=== PATIENT | male | born 1955 | race Caucasian/White ===

== ENCOUNTER 2024-11-25 10:00 | Emergency (ER) | payer BC, MEDICARE, OTHER ==
[2024-11-25] MEDS: Lactated Ringers 1,000 ML IV ONE (10:10)
[2024-11-25] MEDS ORDERED: Sodium Chloride 0.9% 10 ML Syringe FLUSH PRN (10:22)
[2024-11-25 10:27] LABS: BASOPHILS ABSOLUTE AUTO 0.06 10^3/uL (0.00-0.10); BASOPHILS PERCENT AUTO 1.3 % (0.0-1.0); EOSINOPHILS ABSOLUTE AUTO 0.64 10^3/uL (0.10-0.30); EOSINOPHILS PERCENT AUTO 13.4 % (1.0-3.0); HEMOGLOBIN 7.6 g/dL (13.0-17.0); IMMATURE GRAN ABSOLUTE AUTO 0.01 10^3/uL (0.00-0.04); IMMATURE GRAN PERCENT AUTO 0.2 % (0.0-0.4); LYMPHOCYTES ABSOLUTE AUTO 0.56 10^3/uL (1.00-4.00); LYMPHOCYTES PERCENT AUTO 11.7 % (20.0-40.0); MEAN CORPUSCULAR HEMOGLOBIN 30.5 pg (27.0-31.0); MEAN CORPUSCULAR HGB CONC 31.7 g/dL (32.0-36.0); MEAN CORPUSCULAR VOLUME 96.4 fL (82.0-92.0); MEAN PLATELET VOLUME 11.4 fL (7.4-10.4); MONOCYTES ABSOLUTE AUTO 0.61 10^3/uL (0.10-0.80); MONOCYTES PERCENT AUTO 12.8 % (2.0-8.0); NEUTROPHILS PERCENT AUTO 60.6 % (50.0-70.0); PLATELET COUNT,PLT 95 10^3/uL (150-400); RED BLOOD CELL COUNT 2.49 10^6/uL (4.50-6.00); RED CELL DISTRIBUTION WIDTH 17.5 % (11.5-14.5); WHITE BLOOD CELL COUNT,WBC 4.78 10^3/uL (5.00-10.00)
[2024-11-25 10:28] LABS: ALANINE AMINOTRANSFERASE,ALT 14 U/L (14-63); ALBUMIN 3.37 g/dL (3.40-5.00); ALKALINE PHOSPHATASE 78 U/L (46-116); ANION GAP 13.4 mmol/L (5-15); ASPARTATE AMNIOTRANSFERASE,AST 17 U/L (15-37); BILIRUBIN TOTAL 2.8 mg/dL (0.2-1.0); BLOOD UREA NITROGEN,BUN 50 mg/dL (7-18); CALCIUM 9.2 mg/dL (8.7-10.3); CARBON DIOXIDE,CO2 27.5 mmol/L (21.0-32.0); CHLORIDE,CL 102 mmol/L (98-107); ESTIMATED GFR 65 mL/min (>=60); GLUCOSE RANDOM 99 mg/dL (70-140); POTASSIUM,K 3.9 mmol/L (3.5-5.1); PROTEIN TOTAL,TP 8.4 g/dL (6.4-8.2); SODIUM,NA 139 mmol/L (136-145)
[2024-11-25] MEDS ORDERED: Sodium Chloride 0.9% 50 ML IV SCH (10:48)
[2024-11-25 10:51] LABS: INR 3.3 (0.9-1.1); PROTHROMBIN TIME 31.6 SEC (9.1-12.0); PTT,PARTIAL THROMBOPLSTIN TIME 29.2 SEC (21.6-32.4)
[2024-11-25] MEDS: Phytonadione 5 MG in Sodium Chloride 0.9% 50 ML IV ONE (10:55)
[2024-11-25] MEDS ORDERED: Sodium Chloride 0.9% 250 ML IV SCH (11:22)
[2024-11-25] MEDS: Lactated Ringers 1,000 ML ONE (11:34)
[2024-11-25] MEDS: Sodium Chloride 0.9% 250 ML ONE (12:01)
[2024-11-25] MEDS: Sodium Chloride 0.9% 50 ML ONE (12:02)
[2024-11-25] MEDS: Lactated Ringers 1,000 ML IV SCH (14:58)
[2024-11-25 17:40] VITALS: BP 123/77; PULSE 66
== END 2024-11-25 16:18 ==
LOC: KA.ED 10:00
DX: K92.2 Gastrointestinal hemorrhage, unspecified (principal); I10 Essential (primary) hypertension; I48.91 Unspecified atrial fibrillation; J44.9 Chronic obstructive pulmonary disease, unspecified; E11.9 Type 2 diabetes mellitus without complications; Z79.899 Other long term (current) drug therapy; Z79.51 Long term (current) use of inhaled steroids; Z79.84 Long term (current) use of oral hypoglycemic drugs; Z79.01 Long term (current) use of anticoagulants
CPT/HCPCS: 36415; 36430; 80053; 85025; 85610; 85730; 86850; 86900; 86901; 86920; 86922; 96361; 96365; 99284-25; J3430; J3490; J7120; P9016

== ENCOUNTER 2024-12-12 14:20 | Emergency (ER) | payer MEDICARE ==
[2024-12-12 14:36] LABS: BASOPHILS ABSOLUTE AUTO 0.06 10^3/uL (0.00-0.10); BASOPHILS PERCENT AUTO 1.7 % (0.0-1.0); EOSINOPHILS ABSOLUTE AUTO 0.28 10^3/uL (0.10-0.30); EOSINOPHILS PERCENT AUTO 7.9 % (1.0-3.0); HEMATOCRIT 26.7 % (40.0-52.0); HEMOGLOBIN 8.4 g/dL (13.0-17.0); LYMPHOCYTES ABSOLUTE AUTO 0.39 10^3/uL (1.00-4.00); MEAN CORPUSCULAR HEMOGLOBIN 30.3 pg (27.0-31.0); MEAN CORPUSCULAR HGB CONC 31.5 g/dL (32.0-36.0); MEAN CORPUSCULAR VOLUME 96.4 fL (82.0-92.0); MEAN PLATELET VOLUME 10.2 fL (7.4-10.4); MONOCYTES ABSOLUTE AUTO 0.54 10^3/uL (0.10-0.80); MONOCYTES PERCENT AUTO 15.3 % (2.0-8.0); NEUTROPHILS ABSOLUTE AUTO 2.27 10^3/uL (2.50-7.00); NEUTROPHILS PERCENT AUTO 64.1 % (50.0-70.0); PLATELET COUNT,PLT 168 10^3/uL (150-400); RED BLOOD CELL COUNT 2.77 10^6/uL (4.50-6.00); WHITE BLOOD CELL COUNT,WBC 3.54 10^3/uL (5.00-10.00)
[2024-12-12] MEDS: Furosemide 40 MG/4 ML VIAL IVPUSH ONE (14:41)
[2024-12-12] MEDS: Sodium Chloride 0.9% 10 ML Syringe FLUSH PRN (14:43)
[2024-12-12 14:46] LABS: INR 2.1 (0.9-1.1)
[2024-12-12 14:52] LABS: ALBUMIN 3.42 g/dL (3.40-5.00); ANION GAP 14.4 mmol/L (5-15); BILIRUBIN TOTAL 2.4 mg/dL (0.2-1.0); CALCIUM 8.9 mg/dL (8.7-10.3); CARBON DIOXIDE,CO2 26.9 mmol/L (21.0-32.0); CREATININE 1.64 mg/dL (0.51-1.17); EST CRCL DRUG DOSING (CG) 47.37 mL/min; POTASSIUM,K 4.3 mmol/L (3.5-5.1); PROTEIN TOTAL,TP 8.9 g/dL (6.4-8.2)
[2024-12-12 16:04] LABS: APPEARANCE,URINE CLEAR (CLEAR); COLOR,URINE YELLOW (YELLOW); PH,URINE 6.5 (5.0-9.0)
[2024-12-12 16:05] LABS: BILIRUBIN,URINE NEGATIVE (NEGATIVE); GLUCOSE,URINE NEGATIVE (NEGATIVE); KETONES,URINE NEGATIVE (NEGATIVE); LEUKOCYTE ESTERASE,URINE NEGATIVE (NEGATIVE); NITRITE,URINE NEGATIVE (NEGATIVE); OCCULT BLOOD,URINE NEGATIVE (NEGATIVE); PROTEIN,URINE NEGATIVE (NEGATIVE); UROBILINOGEN,URINE 0.2 E.U./dL (0.2-1.0)
[2024-12-12 17:13] VITALS: BP 97/50; PULSE 59
== END 2024-12-12 17:02 ==
LOC: KA.ED 14:20
DX: I48.21 Permanent atrial fibrillation (principal); I11.0 Hypertensive heart disease with heart failure; I50.9 Heart failure, unspecified; D64.9 Anemia, unspecified; J90 Pleural effusion, not elsewhere classified; E11.9 Type 2 diabetes mellitus without complications; J44.9 Chronic obstructive pulmonary disease, unspecified; Z79.01 Long term (current) use of anticoagulants; Z79.899 Other long term (current) drug therapy; Z79.84 Long term (current) use of oral hypoglycemic drugs; Z79.82 Long term (current) use of aspirin
CPT/HCPCS: 36416; 71045; 80053; 81003; 83880; 84484; 85025; 85610; 96374; 99285-25; J1940

== ENCOUNTER 2025-03-05 10:54 | Emergency (ER) | payer MEDICARE ==
[2025-03-05] MEDS ORDERED: niCARdipine/Normal Saline 20 MG in Premix Bag 1 BAG IV SCH (11:45)
[2025-03-05 12:41] LABS: INR 1.4 (0.9-1.1)
[2025-03-05 13:07] LABS: BASOPHILS ABSOLUTE AUTO 0.07 10^3/uL (0.00-0.10); BASOPHILS PERCENT AUTO 1.5 % (0.0-1.0); EOSINOPHILS ABSOLUTE AUTO 1.20 10^3/uL (0.10-0.30); IMMATURE GRAN ABSOLUTE AUTO 0.01 10^3/uL (0.00-0.04); IMMATURE GRAN PERCENT AUTO 0.2 % (0.0-0.4); LYMPHOCYTES ABSOLUTE AUTO 0.49 10^3/uL (1.00-4.00); LYMPHOCYTES PERCENT AUTO 10.5 % (20.0-40.0); MEAN PLATELET VOLUME 10.5 fL (7.4-10.4); MONOCYTES ABSOLUTE AUTO 0.62 10^3/uL (0.10-0.80); MONOCYTES PERCENT AUTO 13.3 % (2.0-8.0); NEUTROPHILS ABSOLUTE AUTO 2.27 10^3/uL (2.50-7.00); NEUTROPHILS PERCENT AUTO 48.7 % (50.0-70.0); PLATELET COUNT,PLT 127 10^3/uL (150-400); RED BLOOD CELL COUNT 3.22 10^6/uL (4.50-6.00); RED CELL DISTRIBUTION WIDTH 19.8 % (11.5-14.5); WHITE BLOOD CELL COUNT,WBC 4.66 10^3/uL (5.00-10.00)
[2025-03-05 13:11] VITALS: BP 123/85; PULSE 60
[2025-03-05 13:18] LABS: ALANINE AMINOTRANSFERASE,ALT 11.0 U/L (14-63); ASPARTATE AMNIOTRANSFERASE,AST 21.0 U/L (15-37); BILIRUBIN TOTAL 2.9 mg/dL (0.2-1.0); CARBON DIOXIDE,CO2 32.1 mmol/L (21.0-32.0); CHLORIDE,CL 91.0 mmol/L (98-107); CREATININE 1.77 mg/dL (0.51-1.17); EST CRCL DRUG DOSING (CG) 43.89 mL/min; GLUCOSE RANDOM 176.0 mg/dL (70-140); POTASSIUM,K 4.5 mmol/L (3.5-5.1); PROTEIN TOTAL,TP 10.1 g/dL (6.4-8.2); SODIUM,NA 132.0 mmol/L (136-145)
[2025-03-05 13:19] LABS: ESTIMATED GFR 41.0 mL/min (>=60)
[2025-03-05 13:20] LABS: BLOOD UREA NITROGEN,BUN 57.0 mg/dL (7-18)
[2025-03-05 13:24] LABS: EOSINOPHILS PERCENT AUTO 25.8 % (1.0-3.0)
== END 2025-03-05 13:10 | disposition home or self-care (01) ==
LOC: KA.ED 10:54
DX: R04.0 Epistaxis (principal); I48.91 Unspecified atrial fibrillation; I10 Essential (primary) hypertension; J44.9 Chronic obstructive pulmonary disease, unspecified; E11.9 Type 2 diabetes mellitus without complications; Z88.8 Allergy status to other drugs, medicaments and biological substances; Z91.048 Other nonmedicinal substance allergy status; Z79.01 Long term (current) use of anticoagulants; Z79.899 Other long term (current) drug therapy
CPT/HCPCS: 36415; 80053; 85025; 85610; 99283

== ENCOUNTER 2025-07-07 22:40 | Emergency (ER) | payer MEDICARE ==
[2025-07-07 23:34] LABS: BASOPHILS ABSOLUTE AUTO 0.06 10^3/uL (0.00-0.10); BASOPHILS PERCENT AUTO 1.1 % (0.0-1.0); EOSINOPHILS ABSOLUTE AUTO 0.75 10^3/uL (0.10-0.30); EOSINOPHILS PERCENT AUTO 13.7 % (1.0-3.0); IMMATURE GRAN ABSOLUTE AUTO 0.04 10^3/uL (0.00-0.04); IMMATURE GRAN PERCENT AUTO 0.7 % (0.0-0.4); LYMPHOCYTES ABSOLUTE AUTO 0.36 10^3/uL (1.00-4.00); LYMPHOCYTES PERCENT AUTO 6.6 % (20.0-40.0); MEAN PLATELET VOLUME 9.3 fL (7.4-10.4); MONOCYTES ABSOLUTE AUTO 0.67 10^3/uL (0.10-0.80); NEUTROPHILS ABSOLUTE AUTO 3.58 10^3/uL (2.50-7.00); NEUTROPHILS PERCENT AUTO 65.6 % (50.0-70.0); PLATELET COUNT,PLT 160 10^3/uL (150-400); RED BLOOD CELL COUNT 3.27 10^6/uL (4.50-6.00); RED CELL DISTRIBUTION WIDTH 16.9 % (11.5-14.5); WHITE BLOOD CELL COUNT,WBC 5.46 10^3/uL (5.00-10.00)
[2025-07-07 23:42] LABS: APPEARANCE,URINE CLOUDY (CLEAR); GLUCOSE,URINE NEGATIVE (NEGATIVE); OCCULT BLOOD,URINE LARGE (NEGATIVE)
[2025-07-07 23:45] LABS: EPITHELIAL CELLS,URINE RARE /LPF
[2025-07-07 23:46] LABS: MONOCYTES PERCENT AUTO 12.3 % (2.0-8.0)
[2025-07-07 23:49] LABS: ALANINE AMINOTRANSFERASE,ALT 60.0 U/L (14-63); ASPARTATE AMNIOTRANSFERASE,AST 53.0 U/L (15-37); BILIRUBIN TOTAL 2.0 mg/dL (0.2-1.0); CARBON DIOXIDE,CO2 27.9 mmol/L (21.0-32.0); CHLORIDE,CL 94.0 mmol/L (98-107); CREATININE 2.13 mg/dL (0.51-1.17); EST CRCL DRUG DOSING (CG) 35.95 mL/min; GLUCOSE RANDOM 154.0 mg/dL (70-140); POTASSIUM,K 4.3 mmol/L (3.5-5.1); PROTEIN TOTAL,TP 10.1 g/dL (6.4-8.2); SODIUM,NA 132.0 mmol/L (136-145)
[2025-07-07 23:50] LABS: ESTIMATED GFR 32.0 mL/min (>=60)
[2025-07-07 23:51] LABS: BLOOD UREA NITROGEN,BUN 72.0 mg/dL (7-18)
[2025-07-08 01:01] VITALS: BP 107/75; PULSE 59
== END 2025-07-08 00:52 | disposition home or self-care (01) ==
LOC: KA.ED 22:40
DX: R31.0 Gross hematuria (principal); Z79.01 Long term (current) use of anticoagulants; I10 Essential (primary) hypertension; J44.9 Chronic obstructive pulmonary disease, unspecified; Z88.8 Allergy status to other drugs, medicaments and biological substances; Z79.4 Long term (current) use of insulin; Z79.899 Other long term (current) drug therapy
CPT/HCPCS: 36415; 80053; 81001; 85025; 99283; 99284